=== PATIENT | male | born 1960 | race Caucasian/White ===

== ENCOUNTER 2020-11-08 09:41 | Outpatient (CLI) | payer OTHER | END 2020-11-08 09:58 | disposition home or self-care (01) | LOC: RX STUDY 09:41 | DX: R13.19 Other dysphagia (principal) ==

== ENCOUNTER 2022-01-10 05:41 | Day surgery (SDC) | payer OTHER ==
[~2022-01-10 05:41] MED LIST: CLONAZEP PO; RESTORIL30 M1 PO; TETRABENAZINE PO
== END 2022-01-10 09:40 | disposition home or self-care (01) ==
LOC: CIR.AMB 05:41
PROVIDERS: ATTEND Surgery Surgery of the Hand
DX: M67.844 Other specified disorders of tendon, left hand (principal); Z20.822 Contact with and (suspected) exposure to COVID-19; Z91.018 Allergy to other foods; F32.A Depression, unspecified; Z86.73 Personal history of transient ischemic attack (TIA), and cerebral infarction without residual deficits